=== PATIENT | female | born 1995 | race Caucasian/White ===

== ENCOUNTER 2019-03-04 18:08 | Emergency (ER) | payer OTHER ==
[~2019-03-04] VITALS: Ht 162.6 cm; Wt 94.3 kg
[2019-03-04] MEDS ORDERED: KETOROLAC TROMETH 60MG/2ML VIAL IM ONE (20:15)
[2019-03-04] MEDS ORDERED: BACLOFEN 10 MG TAB PO ONE (20:15)
[2019-03-04] MEDS ORDERED: methylPREDNISolone SOD SUCC 125 MG/2 ML VL IM ONE (20:15)
[2019-03-04 20:58] VITALS: BP 114/68
== END 2019-03-04 21:05 | disposition home or self-care (01) ==
LOC: ER 18:08
DX: S13.9XXA Sprain of joints and ligaments of unspecified parts of neck, initial encounter (principal); M62.838 Other muscle spasm; Z91.040 Latex allergy status; X50.0XXA Overexertion from strenuous movement or load, initial encounter; Y93.89 Activity, other specified; Y99.8 Other external cause status; Y92.89 Other specified places as the place of occurrence of the external cause
CPT/HCPCS: 96372; 99283; J1885; J2930

== ENCOUNTER 2021-02-28 04:43 | Emergency (ER) | payer OTHER, BC ==
[~2021-02-28] VITALS: Ht 162.6 cm; Wt 90.7 kg
[2021-02-28 06:37] VITALS: BP 134/83
== END 2021-02-28 06:48 | disposition home or self-care (01) ==
LOC: ER 04:43
DX: S83.92XA Sprain of unspecified site of left knee, initial encounter (principal); X58.XXXA Exposure to other specified factors, initial encounter; Y93.89 Activity, other specified; Y92.89 Other specified places as the place of occurrence of the external cause; Y99.8 Other external cause status
CPT/HCPCS: 29505; 73562